=== PATIENT | female | born 1960 | race Caucasian/White ===

== ENCOUNTER 2020-05-08 14:08 | Inpatient (IN) | payer BC ==
[2020-05-08] MEDS ORDERED: ONDANSETRON 4 MG/2 ML VIAL ONE (14:38)
[2020-05-08] MEDS ORDERED: NA CHLORIDE 0.9% 1,000 ML ONE ×2 (14:38→17:24)
[2020-05-08] MEDS ORDERED: MORPHINE 4 MG/ML SYR ONE ×3 (14:38→18:21)
[2020-05-08 14:57] LABS: Absolute Lymphocytes (CBC) 1.6 K/uL (0.7-4.9); Basophils % 0.7 % (0-1.3); Hematocrit 37.8 % (36.0-45.0); Lymphocytes % 13.7 % (15.3-44.8); MPV 9.4 fL (7.6-11.3); RBC Red Blood Cell Count 4.41 M/uL (3.86-4.86)
[2020-05-08 15:15] LABS: ALT/SGPT 18 U/L (12-78); AST/SGOT 12 U/L (15-37); Albumin 3.9 g/dL (3.4-5.0); Alkaline Phosphatase 59 U/L (45-117); BUN Blood Urea Nitrogen 16 mg/dL (7-18); Bicarbonate 24 mmol/L (21-32); Bilirubin Direct 0.1 mg/dL (0-0.2); Bilirubin Total 0.7 mg/dL (0.2-1.0); Glucose Level 135 mg/dL (74-106); Lipase 146 U/L (73-393); Protein, Total 8.1 g/dL (6.4-8.2); Sodium Level 141 mmol/L (136-145)
[2020-05-08 15:19] LABS: Urine Bacteria NONE SEEN /HPF (<20); Urine Culture Reflex Order NOT NEEDED
[2020-05-08 15:22] LABS: Urine Blood TRACE (NEG); Urine Glucose NEGATIVE (NEG); Urine Protein 1+ (NEG)
--- NOTE | 2020-05-08 16:21 | RAD REPORT ---
EXAM DESCRIPTION: CTAbdomen Pelvis W Contrast - 05/08/2020 3:53 pm CLINICAL HISTORY: Abdominal pain. left lower abdomen pain COMPARISON: No comparisons TECHNIQUE: Biphasic CT imaging of the abdomen and pelvis was performed with 100 ml non-ionic IV cont rast. All CT scans are performed using dose optimization technique as appropriate and may include automated exposure control or mA/KV adjustment according to patient size. FINDINGS: The lung bases are clear. The liver, spleen, pancreas, adrenal glands and kidneys are within normal limits. No bowel obstruction, free air, free fluid or abscess. The appendix is not identified as a discrete structure, however, no secondary findings of appendicitis are identified. There is inflammatory wong ges involving the sigmoid colon in the left lower quadrant which are moderately severe likely represe nting acute diverticulitis. A small peridiverticular abscess is seen adjacent to this region measurin g 2 cm in abutting the uterus. This abscess would not be drainable by percutaneous technique. No evid ence of significant lymphadenopathy. No suspicious bony findings. IMPRESSION: Moderate acute sigmoid diverticulitis pattern is seen with small 2 cm peridiverticular a bscess noted deep to the colon and abutting the left aspect of the uterus.
[2020-05-08] MEDS ORDERED: KETOROLAC 30 MG/ML INJ ONE (16:34)
--- NOTE | 2020-05-08 16:59 | ER ---
Nurse's Notes [facility] Name: Rhonda Dowling Age: 59 yrs Sex: Female : 1960 Arrival Date: 05/08/2020 Time: 14:10 Bed 25 Private MD: Diagnosis: Diverticulitis of large intestine with perforation and abscess without bleeding-sigmoid colon Presentation: 05/08 14:13 Chief complaint: Patient states: abdominal pain more on the LL started 10 days ago. ca1 Went to PCP, prescribed abx for bowel infection, completed abx course yesterday. Pain came back today. Reports N/V last night. Denies fever. Coronavirus screen: Proceed with normal triage. Patient denies a cough. Patient denies shortness of breath or difficulty breathing. Patient denies measured and/or subjective temperature greater than 100.4F prior to today's visit. Patient denies travel on a cruise ship or to a country the [facility] currently lists as an affected area. Patient denies contact with known and/or suspected case of COVID-19. Ebola Screen: Patient negative for fever greater than or equal to 101.5 degrees Fahrenheit, and additional compatible Ebola Virus Disease symptoms Patient denies exposure to infectious person. Patient denies travel to an Ebola-affected area in the 21 days before illness onset. No symptoms or risks identified at this time. Initial Sepsis Screen: Does the patient meet any 2 criteria? No. Patient's initial sepsis screen is negative. Does the patient have a suspected source of infection? No. Patient's initial sepsis screen is negative. Risk Assessment: Do you want to hurt yourself or someone else? Patient reports no desire to harm self or others. Onset of symptoms was May 08, 2020. 14:13 Method Of Arrival: Ambulatory ca1 14:13 Acuity: JOSE R 3 ca1 Triage Assessment: 14:22 General: Appears uncomfortable, Behavior is calm, cooperative. Pain: Complains of pain ls4 in left lower quadrant Pain currently is 9 out of 10 on a pain scale. Quality of pain is described as sharp, stabbing, Pain began 2 weeks and then came back today. GI: Reports lower abdominal pain, Pain is 9 out of 10 on a pain scale. :. Derm: Skin is pink, warm \T\ dry. Historical: - Allergies: 14:17 Codeine; ca1 - Home Meds: 14:17 lisinopril 40 mg Oral tab 1 tab once daily [Active]; Bystolic 5 mg oral tab 1 tab once ca1 daily [Active]; metformin 500 mg Oral Tb24 1 tab once daily [Active]; - PMHx: 14:17 Hypertension; Diabetes - NIDDM; ca1 - PSHx: 14:17 None; ca1 - Immunization history:: Adult Immunizations up to date. - Social history:: Smoking status: Patient/guardian denies using tobacco. Screenin:24 Abuse screen: Denies threats or abuse. Denies injuries from another. Nutritional ls4 screening: No deficits noted. Tuberculosis screening: No symptoms or risk factors identified. Fall Risk None identified. Assessment: 15:20 Reassessment: Patient appears in no apparent distress at this time. Patient and/or ls4 family updated on plan of care and expected duration. Pain level reassessed. Patient is alert, oriented x 3, equal unlabored respirations, skin warm/dry/pink. PT REPORTS PAIN 8/10, VERBAL ORDER DAWN PINA TO REPEAT MORPHINE 4 MG IV. 15:47 GI: Abdomen is non-distended, Bowel sounds present X 4 quads. Abdomen is tender to ls4 palpation in left lower quadrant. 18:49 Reassessment: CALLED TO GIVE REPORT TO SECOND FLOOR. CANDICE STATES THEY ARE IN REPORT ls4 AND WILL CALL BACK. Vital Signs: 14:13 BP 181 / 84; Pulse 64; Resp 15 S; Temp 97.3(TE); Pulse Ox 99% on R/A; Weight 77.11 kg ca1 (R); Height 5 ft. 7 in. (170.18 cm) (R); Pain 9/10; 15:45 BP 180 / 69; Pulse 60; Resp 20; Pulse Ox 100% on R/A; Pain 7/10; ls4 18:35 BP 168 / 80; Pulse 67; Resp 16; Temp 97.9(O); Pulse Ox 100% on R/A; Pain 4/10; ls4 14:13 Body Mass Index 26.63 (77.11 kg, 170.18 cm) ca1 ED Course: 14:10 Patient arrived in ED. ag5 14:16 Triage completed. ca1 14:17 Arm band placed on right wrist. ca1 14:18 Dawn Pina PA is PHCP. cp 14:18 Christin Nelson MD is Attending Physician. cp 14:22 Jewell Brown, ANA PAULA is Primary Nurse. ls4 14:24 Patient has correct armband on for positive identification. Bed in low position. Call ls4 light in reach. Side rails up X 1. Pulse ox on. NIBP on. Warm blanket given. Pillow given. Diet: Patient is NPO. 14:24 No provider procedures requiring assistance completed. ls4 14:40 Inserted saline lock: 20 gauge in left forearm, using aseptic technique. dh4 15:45 CT Abd/Pelvis - IV Contrast Only Sent. ls4 15:53 CT Abd/Pelvis - IV Contrast Only In Process Unspecified. EDMS 16:58 Prince Reyes MD is Hospitalizing Provider. cp Administered Medications: 14:47 Drug: morphine 4 mg Route: IVP; Site: left forearm; ls4 15:17 Follow up: Response: No adverse reaction; Pain is decreased ls4 15:47 Follow up: Response: No adverse reaction; Marked relief of symptoms ls4 14:48 Drug: NS 0.9% 1000 ml Route: IV; Rate: 1000 ml/hr; Site: left forearm; ls4 15:48 Follow up: IV Status: Completed infusion; IV Intake: 1000ml ls4 14:55 Drug: Zofran (Ondansetron) 4 mg Route: IVP; Site: left forearm; ls4 15:25 Follow up: Response: No adverse reaction; Marked relief of symptoms ls4 15:22 Drug: morphine 4 mg Route: IVP; Site: left forearm; ls4 15:52 Follow up: Response: No adverse reaction; Pain is decreased ls4 16:31 Drug: TORadol 30 mg Route: IVP; Site: left forearm; ls4 16:45 Follow up: Response: No adverse reaction; Marked relief of symptoms; Pain is decreased ls4 17:34 Drug: Zosyn 3.375 grams Route: IVPB; Infused Over: 60 mins; Site: left forearm; ls4 18:34 Follow up: IV Status: Completed infusion; IV Intake: 100ml ls4 18:26 Drug: morphine 4 mg Route: IVP; Site: left forearm; ls4 18:46 Follow up: Response: No adverse reaction; Marked relief of symptoms; Pain is decreased ls4 Intake: 15:48 IV: 1000ml; Total: 1000ml. ls4 18:34 IV: 100ml; Total: 1100ml. ls4 Outcome: 16:59 Decision to Hospitalize by Provider. cp 20:59 Admitted to Med/surg accompanied by nurse, room 209, with chart, Report called to ls4 john crawley 20:59 Condition: unchanged ls4 20:59 Instructed on the need for admit. 21:47 Patient left the ED. ls4 Signatures: Dispatcher [employer] EDMS Dawn iPna PA PA cp Stewart, Lisa RN RN ls4 Cristal Herrera RN RN ca1 Chauncey Cartagena 5 Adam Thomson 4 Corrections: (The following items were deleted from the chart) 18:54 15:20 Reassessment: Patient appears in no apparent distress at this time. Patient ls4 and/or family updated on plan of care and expected duration. Pain level reassessed. Patient is alert, oriented x 3, equal unlabored respirations, skin warm/dry/pink. PT REPORTS PAIN 8/10, VERBAL ORDER DAWN PINA TO REPEAT MORPHINE 4 MG IV ls4 18:54 18:49 Reassessment: CALLED TO GIVE REPORT TO SECOND FLOOR. CANDICE STATES THEY ARE IN ls4 REPORT AND WILL CALL BACK ls4
--- NOTE | 2020-05-08 16:59 | EDPHYS ---
Physician Documentation [facility] Name: Rhonda Dowling Age: 59 yrs Sex: Female : 1960 Arrival Date: 05/08/2020 Time: 14:10 Bed 25 Private MD: ED Physician Christin Nelson HPI: 05/08 14:30 This 59 yrs old Female presents to ER via Ambulatory with complaints of cp Abdominal Pain. 14:30 The patient presents with abdominal pain in the left lower quadrant. Onset: The cp symptoms/episode began/occurred 12 day(s) ago. The symptoms radiate to left back. Associated signs and symptoms: Pertinent positives: nausea and vomiting, Pertinent negatives: constipation, diarrhea, dysuria, fever. The symptoms are described as constant. Patient reports taking last dose of antibiotic yesterday with pain returning and being worse today. Historical: - Allergies: 14:17 Codeine; ca1 - Home Meds: 14:17 lisinopril 40 mg Oral tab 1 tab once daily [Active]; Bystolic 5 mg oral tab 1 tab once ca1 daily [Active]; metformin 500 mg Oral Tb24 1 tab once daily [Active]; - PMHx: 14:17 Hypertension; Diabetes - NIDDM; ca1 - PSHx: 14:17 None; ca1 - Immunization history:: Adult Immunizations up to date. - Social history:: Smoking status: Patient/guardian denies using tobacco. ROS: 14:35 Constitutional: Negative for body aches, chills, fever, poor PO intake. cp 14:35 Eyes: Negative for injury, pain, redness, and discharge. cp 14:35 ENT: Negative for ear pain, sore throat, difficulty swallowing, difficulty handling cp secretions. 14:35 Cardiovascular: Negative for chest pain, edema, palpitations. 14:35 Respiratory: Negative for cough, shortness of breath, wheezing. 14:35 Abdomen/GI: Positive for abdominal pain, nausea and vomiting, Negative for diarrhea, constipation, black/tarry stool, rectal bleeding. 14:35 Back: Negative for radiated pain. 14:35 : Negative for urinary symptoms, vaginal bleeding, vaginal discharge. 14:35 Neuro: Negative for altered mental status, dizziness, weakness. 14:35 All other systems are negative. cp Exam: 14:40 Constitutional: The patient appears in no acute distress, alert, awake, non-toxic, well cp developed, well nourished, uncomfortable. 14:40 Head/Face: Normocephalic, atraumatic. cp 14:40 Eyes: Periorbital structures: appear normal, Conjunctiva: normal, no exudate, no injection, Sclera: no appreciated abnormality, Lids and lashes: appear normal, bilaterally. 14:40 ENT: External ear(s): are unremarkable, Nose: is normal, Mouth: is normal, Posterior pharynx: is normal, airway is patent. 14:40 Chest/axilla: Inspection: normal, Palpation: is normal, no crepitus, no tenderness. 14:40 Cardiovascular: Rate: normal, Rhythm: regular, Edema: is not appreciated, JVD: is not appreciated. 14:40 Respiratory: the patient does not display signs of respiratory distress, Respirations: normal, no use of accessory muscles, no retractions, labored breathing, is not present, Breath sounds: are clear throughout, no decreased breath sounds, no stridor, no wheezing. 14:40 Abdomen/GI: Inspection: abdomen appears normal, Bowel sounds: active, all quadrants, Palpation: soft, in all quadrants, moderate abdominal tenderness, in the left lower quadrant, rebound tenderness, is not appreciated, voluntary guarding, is elicited in the left lower quadrant. 14:40 Neuro: Orientation: to person, place \T\ time. Mentation: is normal, Motor: moves all fours, strength is normal. Vital Signs: 14:13 BP 181 / 84; Pulse 64; Resp 15 S; Temp 97.3(TE); Pulse Ox 99% on R/A; Weight 77.11 kg ca1 (R); Height 5 ft. 7 in. (170.18 cm) (R); Pain 9/10; 15:45 BP 180 / 69; Pulse 60; Resp 20; Pulse Ox 100% on R/A; Pain 7/10; ls4 18:35 BP 168 / 80; Pulse 67; Resp 16; Temp 97.9(O); Pulse Ox 100% on R/A; Pain 4/10; ls4 14:13 Body Mass Index 26.63 (77.11 kg, 170.18 cm) ca1 MDM: 14:24 Patient medically screened. cp 14:45 Differential diagnosis: diverticulitis, non-specific abd pain, Ureterolithiasis, cp urinary tract infection. 16:35 Data reviewed: vital signs, nurses notes, lab test result(s), radiologic studies, CT cp scan, and as a result, I will admit patient. 16:35 Counseling: I had a detailed discussion with the patient and/or guardian regarding: the cp historical points, exam findings, and any diagnostic results supporting the discharge/admit diagnosis, lab results, radiology results. Response to treatment: the patient's symptoms have markedly improved after treatment. 16:45 Physician consultation: Taj Landeros MD was called at 16:45, was contacted at 16:45, regarding consult, patient's condition, would like admission per Dr. Prince Amy CALDERON. 17:00 Physician consultation: Prince Amy CALDERON was called at 16:55, was contacted at 16:55, cp regarding admission, to the medical/surgical unit. patient's condition. 05/08 14:27 Order name: Basic Metabolic Panel; Complete Time: 15:38 cp 05/08 14:27 Order name: CBC with Diff; Complete Time: 15:38 cp 05/08 14:27 Order name: Hepatic Function; Complete Time: 15:38 cp 05/08 14:27 Order name: Lipase; Complete Time: 15:38 cp 05/08 14:27 Order name: Urine Microscopic Only; Complete Time: 15:38 cp 05/08 14:28 Order name: Urine Dipstick--Ancillary (enter results); Complete Time: 15:38 bd 05/08 14:27 Order name: CT Abd/Pelvis - IV Contrast Only; Complete Time: 16:33 cp 05/08 21:20 Order name: Lactate EDMS 05/08 14:27 Order name: IV Saline Lock; Complete Time: 14:56 cp 05/08 14:27 Order name: Labs collected and sent; Complete Time: 14:56 cp 05/08 14:27 Order name: Urine Dipstick-Ancillary (obtain specimen); Complete Time: 14:28 cp 05/08 16:35 Order name: NPO; Complete Time: 17:14 cp Administered Medications: 14:47 Drug: morphine 4 mg Route: IVP; Site: left forearm; ls4 15:17 Follow up: Response: No adverse reaction; Pain is decreased ls4 15:47 Follow up: Response: No adverse reaction; Marked relief of symptoms ls4 14:48 Drug: NS 0.9% 1000 ml Route: IV; Rate: 1000 ml/hr; Site: left forearm; ls4 15:48 Follow up: IV Status: Completed infusion; IV Intake: 1000ml ls4 14:55 Drug: Zofran (Ondansetron) 4 mg Route: IVP; Site: left forearm; ls4 15:25 Follow up: Response: No adverse reaction; Marked relief of symptoms ls4 15:22 Drug: morphine 4 mg Route: IVP; Site: left forearm; ls4 15:52 Follow up: Response: No adverse reaction; Pain is decreased ls4 16:31 Drug: TORadol 30 mg Route: IVP; Site: left forearm; ls4 16:45 Follow up: Response: No adverse reaction; Marked relief of symptoms; Pain is decreased ls4 17:34 Drug: Zosyn 3.375 grams Route: IVPB; Infused Over: 60 mins; Site: left forearm; ls4 18:34 Follow up: IV Status: Completed infusion; IV Intake: 100ml ls4 18:26 Drug: morphine 4 mg Route: IVP; Site: left forearm; ls4 18:46 Follow up: Response: No adverse reaction; Marked relief of symptoms; Pain is decreased ls4 Disposition: 05/08/20 16:59 Hospitalization ordered by Prince Amy for Inpatient Admission. Preliminary diagnosis is Diverticulitis of large intestine with perforation and abscess without bleeding - sigmoid colon. - Bed requested for Telemetry/MedSurg (Inpatient). - Status is Inpatient Admission. ls4 - Condition is Stable. - Problem is new. - Symptoms have improved. Addendum: 05/14/2020 02:26 Co-signature as Attending Physician, Christin Nelson MD. m a2 Signatures: Dispatcher [employer] Deedee Chin RN RN dw Page, Corey, PA PA cp Christin Nelson MD MD ma2 Jewell Brown RN RN ls4 Cristal Herrera RN RN ca1 Corrections: (The following items were deleted from the chart) 05/08 17:00 16:59 Hospitalization Ordered by Prince Amy CALDERON for Inpatient Admission. Preliminary cp diagnosis is Diverticulitis of large intestine with perforation and abscess without bleeding. Bed requested for Telemetry/MedSurg (Inpatient). Status is Inpatient Admission. Condition is Stable. Problem is new. Symptoms have improved. cp 18:07 17:00 05/08/2020 16:59 Hospitalization Ordered by Prince Amy CALDERON for Inpatient dw Admission. Preliminary diagnosis is Diverticulitis of large intestine with perforation and abscess without bleeding - sigmoid colon. Bed requested for Telemetry/MedSurg (Inpatient). Status is Inpatient Admission. Condition is Stable. Problem is new. Symptoms have improved. cp 21:46 18:07 05/08/2020 16:59 Hospitalization Ordered by Prince Amy CALDERON for Inpatient ls4 Admission. Preliminary diagnosis is Diverticulitis of large intestine with perforation and abscess without bleeding - sigmoid colon. Bed requested for Telemetry/MedSurg (Inpatient). Status is Inpatient Admission. Condition is Stable. Problem is new. Symptoms have improved. dw 21:47 21:46 05/08/2020 16:59 Hospitalization Ordered by Prince Amy CALDERON for Inpatient ls4 Admission. Preliminary diagnosis is Diverticulitis of large intestine with perforation and abscess without bleeding - sigmoid colon. Bed requested for Telemetry/MedSurg (Inpatient). Status is Inpatient Admission. Condition is Stable. Problem is new. Symptoms have improved. ls4
[2020-05-08] MEDS ORDERED: PIPER/TAZO/NS 3.375gm 3.375 GM/100 ML BAG ONE (17:24)
--- NOTE | 2020-05-08 18:38 | P.HP ---
Certification for Inpatient Patient admitted to: Inpatient With expected LOS: >2 Midnights Patient will require the following post-hospital care: None Practitioner: I am a practitioner with admitting privileges, knowledge of patient current condition, hospital course, and medical plan of care. Services: Services provided to patient in accordance with Admission requirements found in Title 42 Section 412.3 of the Code of Federal Regulations Patient History Date of Service: 05/08/20 Reason for admission: Abdomen History of Present Illness: Patient is a 59-year-old female with a past medical history of obesity, hypertension, [id number] diabetes mellitus, and diverticulitis. She present to the ER complaining of acutely worsening left lower quadrant abdominal pain for the past 2 weeks. Patient was seen by her PCP for this issue and was prescribed antibiotics. She suspects it is Keflex. She endorses improvement for the next 10 days before relapsing again. She called her PCP who was willing to prescribe another antibiotics but patient could not stay home. Therefore she presented the ER. Denies fever, chills. She denies any gastrointestinal bleeding. As stated above, she has had diverticulitis several years ago. Her post hospitalization colonoscopy was unremarkable. She has had at least 2 more colonoscopy with the last 1 being 5 years ago. Her last colonoscopy revealed a benign polyp. She arrived in the ER without signs of sepsis. His CT abdomen and pelvis showed diverticular abscess approximately 2 cm abutting the left uterus. Surgery has been consulted by the ER. Physical Examination - Physical Exam General: Cooperative, Other (Lethargic) HEENT: Atraumatic, Normocephalic, PERRLA, EOMI Neck: Supple Respiratory: Clear to auscultation bilaterally, Normal air movement Cardiovascular: Normal pulses, Regular rate/rhythm, Normal S1 S2 Gastrointestinal: Hypoactive, Soft and benign, Non-distended, Other (Mild left lower quadrant tenderness) Musculoskeletal: No clubbing, No swelling, No contractures, No erythema, No tenderness, No warmth Integumentary: No rashes, No breakdown, No significant lesion, No tenderness/swelling, No erythema, No warmth, No cyanosis Neurological: Normal speech, Sensation intact, Normal affect - Studies Laboratory Data (last 24 hrs) 05/08/20 14:41: WBC 11.3 H, Hgb 12.3, Hct 37.8, Plt Count 275 05/08/20 14:41: Sodium 141, Potassium 4.0, BUN 16, Creatinine 0.65, Glucose 135 H, Total Bilirubin 0.7, AST 12 L, ALT 18, Alkaline Phosphatase 59, Lipase 146 Assessment and Plan - Problems (Diagnosis) (1) Colonic diverticular abscess Current Visit: Yes Status: Acute (2) Type 2 diabetes mellitus Current Visit: Yes Status: Acute (3) Hypertension Current Visit: Yes Status: Acute (4) Hyperlipidemia Current Visit: Yes Status: Acute - Plan Assessment Patient is a 59 year old female currently admitted with acute on chronic diverticulitis with abscess Diverticular abscess Hyperlipidemia Hypertension Type 2 diabetes mellitus Plan Admit inpatient NPO except for ice chips Start levofloxacin and Flagyl Lactated Ringer infusion Pain control and antiemetics Surgery consulted. Follow-up recommendations - Advance Directives Does patient have a Living Will: No Does patient have a Durable POA for Healthcare: No
[2020-05-08 20:39] VITALS: BMI 26.6
[2020-05-08] MEDS: Levofloxacin 750mg IV 750 MG/150 ML BAG IV SCH (20:47)
[2020-05-08] MEDS: Ringers Lactate 1,000 ML IV SCH (20:47)
[2020-05-08] MEDS: HYDROMORPHONE HCL 1 MG/ML INJ IV PRN (20:50)
[2020-05-08] MEDS: METRONIDAZOLE 500mg IVPB 500 MG/100 ML BAG IV SCH (22:17)
[2020-05-08] MEDS: ONDANSETRON 4 MG/2 ML VIAL IV PRN (22:20)
[2020-05-09] MEDS: METRONIDAZOLE 500mg IVPB 500 MG/100 ML BAG IV SCH ×3 (00:57→16:35)
[2020-05-09] MEDS: HYDROMORPHONE HCL 1 MG/ML INJ IV PRN ×5 (00:57→20:57)
[2020-05-09] MEDS: Ringers Lactate 1,000 ML IV SCH ×2 (05:50→16:30)
--- NOTE | 2020-05-09 07:36 | P.PN ---
Subjective Date of Service: 05/09/20 Chief Complaint: Abdomen Patient is complaining of nausea and dry heaving. She has been afebrile. She states her abdominal pain is better this morning after pain medication. Physical Examination - Vital Signs Temperature: 98.5 F Blood Pressure: 167/77 Pulse: 69 Respirations: 16 Pulse Ox (%): 95 - Physical Exam General: Alert, In no apparent distress, Oriented x3 HEENT: Mucous membr. moist/pink Respiratory: Clear to auscultation bilaterally, Normal air movement Cardiovascular: No edema, Regular rate/rhythm, Normal S1 S2 Gastrointestinal: Normal bowel sounds, Non-distended, Tenderness (Tenderness on deep palpation of left lower quadrant) Integumentary: No rashes - Studies Laboratory Data (last 24 hrs) 05/08/20 14:41: WBC 11.3 H, Hgb 12.3, Hct 37.8, Plt Count 275 05/08/20 14:41: Sodium 141, Potassium 4.0, BUN 16, Creatinine 0.65, Glucose 135 H, Total Bilirubin 0.7, AST 12 L, ALT 18, Alkaline Phosphatase 59, Lipase 146 Assessment And Plan - Current Problems (Diagnosis) (1) Colonic diverticular abscess Current Visit: Yes Status: Acute (2) Hyperlipidemia Current Visit: Yes Status: Acute (3) Hypertension Current Visit: Yes Status: Acute (4) Type 2 diabetes mellitus Current Visit: Yes Status: Acute - Plan Continue current IV antibiotics. Supportive measures with IV hydration, antiemetics and IV opiates p.r.n. for pain. Resume home antihypertensives. Insulin sliding scale. Keep NPO until seen by surgery.
[2020-05-09] MEDS: lisinopriL 20 MG TAB PO SCH (08:40)
[2020-05-09] MEDS: NEBIVOLOL HCL 5 MG TAB PO SCH (08:40)
--- NOTE | 2020-05-09 11:22 | CON ---
Date of Consultation: 05/09/2020 Diagnosis: Intraabdominal abscess, possible diverticulitis. History Of Present Illness: This is the case of a 59-year-old female with multiple medical problems including diverticular disease and diabetes, who comes after a week of abdominal pain. She was on an tibiotics, she believed it was a cephalosporin given by the primary doctor, but she had not improved and she comes to the ER this time and she was admitted and found to have a diverticulitis on CAT scan with pericolonic abscess. The patient stated that the last 2 weeks she has not been herself, she gomes s some belly ache. She remembered in the past having a history of diverticular disease, but not into this level that require admission. She states she had colonoscopies done before with benign polyps, I do not have those at this moment. Review of Systems: Ten points otherwise unremarkable. Past Medical History: Once again, morbid obesity, hypertension, diabetes non-insulin dependent, and diverticulitis. Family History: Noncontributory. Allergies: CODEINE. Social History: She does not smoke. She does not drink alcohol. Physical Examination: General: Patient is awake, alert, cooperative. Eyes: Pupils are equal and reactive, anicteric. Neck: Supple. Chest: Clear. Abdomen: Soft and depressible. Mild left lower quadrant tenderness. No guarding or rebound. No pe ritoneal signs. Rectal: Deferred. Breast: Deferred. Pelvic: Deferred. Extremities: Good capillary refill. Laboratory Data: Blood work shows WBC count of 11.3, hemoglobin of 12.3, and chloride is 110. CAT s can of abdomen and pelvis interpreted by Dr. Mckeon as moderate acute sigmoid diverticulitis with small 2 cm shantel-diverticular abscess. No free air seen. Assessment And Plan: This is a 59-year-old patient with diverticulitis, small intraperitoneal absces s. The patient was started n.p.o., IV antibiotics, bowel rest. She was explained what may happen du ring this admission if she get worse, which is emergent laparotomy, possible bowel resection, and ost key with benefits, alternatives, and risks including, but not limited to infection, bleeding, damage to adjacent structures, anesthesia complication, nonhealing wound, myocardial infarction, and even de ath. She also understands this may not relieve any symptoms, she might need more than one surgical i ntervention. If she responds to antibiotics, then we do not have to go for this emergent procedure, she still may be a candidate of elective bowel resection. She was explained the benefits, alternativ es, and risks. She is going to come back to the office if she improved without surgery at this time. REUBEN/BLUE Voice ID: [id number] Report ID: [id number]
[2020-05-09] MEDS: ONDANSETRON 4 MG/2 ML VIAL IV PRN (16:35)
[2020-05-09] MEDS: Levofloxacin 750mg IV 750 MG/150 ML BAG IV SCH (20:31)
[2020-05-10] MEDS: METRONIDAZOLE 500mg IVPB 500 MG/100 ML BAG IV SCH ×3 (00:06→16:07)
[2020-05-10] MEDS: Ringers Lactate 1,000 ML IV SCH ×4 (00:50→20:14)
[2020-05-10] MEDS: HYDROMORPHONE HCL 1 MG/ML INJ IV PRN ×4 (00:50→20:14)
[2020-05-10] MEDS: ONDANSETRON 4 MG/2 ML VIAL IV PRN ×2 (00:51→13:19)
[2020-05-10 04:24] LABS: Absolute Lymphocytes (CBC) 1.6 K/uL (0.7-4.9); Basophils % 0.7 % (0-1.3); Hematocrit 33.1 % (36.0-45.0); Lymphocytes % 16.2 % (15.3-44.8); MPV 9.7 fL (7.6-11.3)
[2020-05-10 04:33] LABS: BUN Blood Urea Nitrogen 10 mg/dL (7-18); Bicarbonate 27 mmol/L (21-32); Glucose Level 117 mg/dL (74-106); Potassium 3.5 mmol/L (3.5-5.1); Sodium Level 139 mmol/L (136-145)
[2020-05-10] MEDS: NEBIVOLOL HCL 5 MG TAB PO SCH (08:39)
[2020-05-10] MEDS: lisinopriL 20 MG TAB PO SCH (08:40)
[2020-05-10] MEDS: TRAMADOL HCL 50 MG TAB PO SCH ×3 (09:18→23:24)
--- NOTE | 2020-05-10 09:53 | RAD REPORT ---
EXAM DESCRIPTION: RAD - Abdomen W Erect - 05/10/2020 9:40 am CLINICAL HISTORY: diverticulitis Pain COMPARISON: Abdomen Pelvis W Contrast dated 05/08/2020 FINDINGS: The bowel gas pattern is non-obstructive. No evidence of free air or pneumatosis. No suspi cious calcifications. No significant bony findings. IMPRESSION: Negative examination.
[2020-05-10] MEDS ORDERED: LABETALOL 20 MG/4ML SYRINGE IV PRN (11:04)
--- NOTE | 2020-05-10 11:09 | P.PN ---
Subjective Date of Service: 05/10/20 Chief Complaint: Abdomen Subjective: Improving (FEELS AT LEAST 50% IMPROVED. SHE STILL COMPLAINS OF PAIN DURING BOWEL MOVEMENTS. TRAMADOL ADDED TO ALL HER MULTIMODAL PAIN REGIMEN. SHE WAS DISTRESSED WHEN WHEN I DISCUSSED THE POSSIBILITY OF SURGICAL INTERVENTION, WHICH IS CONTEMPLATED AT THIS TIME. I DEFER FURTHER EXPLANATION TO SURGERY.) Physical Examination - Vital Signs Temperature: 98.7 F Blood Pressure: 191/84 Pulse: 72 Respirations: 16 Pulse Ox (%): 97 - Physical Exam General: In no apparent distress, Cooperative, Mild distress HEENT: Atraumatic, Normocephalic, EOMI Neck: Supple Respiratory: Clear to auscultation bilaterally, Normal air movement Cardiovascular: No edema, Normal pulses, Regular rate/rhythm, Normal S1 S2 Gastrointestinal: Normal bowel sounds, Hypoactive, No guarding, Other (LLQ tenderness. ), Tenderness Musculoskeletal: No clubbing, No swelling, No contractures, No erythema, No tenderness, No warmth Integumentary: No rashes, No breakdown, No significant lesion, No tenderness/swelling, No erythema, No warmth, No cyanosis Neurological: Normal speech, Sensation intact, Normal affect Assessment & Plan - Problems (Diagnosis) (1) Colonic diverticular abscess Current Visit: Yes Status: Acute (2) Type 2 diabetes mellitus Current Visit: Yes Status: Acute (3) Hypertension Current Visit: Yes Status: Acute (4) Hyperlipidemia Current Visit: Yes Status: Acute Physician Review Additional Text: Assessment Patient is a 59 year old female currently admitted with acute on c hronic diverticulitis with abscess Diverticular abscess Hyperlipidemia Hypertension Type 2 diabetes mellitus Plan Day 3 of levofloxacin, flagyl and IVF Kept NPO by Surgery Dr. Landeros to re-assess the patient and discuss surgical options today Optimize multi-modal pain regimen: tramadol added Continue antiemetics Optimize BP control. PRN labetalol added. Continue TABBY-i and bystolic (patient states she's been dx with adrenal hyperstimulation; CT A/P with normal adrenal glands) Follow-up recommendations
--- NOTE | 2020-05-10 11:44 | PN ---
Reason For Service: Diverticula with intraperitoneal abscess. History: The patient is doing better, less pain in the left lower quadrant. No fever. No shortness of breath. No chest pain. Review of Systems: Ten points, otherwise, unremarkable. Physical Examination: General: The patient is awake and alert, in no distress. Eyes: Pupils anicteric. Chest: Clear. Abdomen: Soft and depressible. Left lower quadrant tenderness with less pain. Extremities: Good capillary refill. The patient starting to have movement. Laboratory Data: Blood work shows WBC count from 11 to 9. X-ray shows no free air. Assessment And Plan: This is a 59-year-old patient with diverticulitis and abscess. She has been tr eated for the last 10-12 days with p.o. antibiotics, failed outpatient treatment, came to the ER, rajinder gnosed with abscess and we started on IV antibiotics. We called Infectious Disease also to help us d etermine the length of the antibiotics treatment and the route. From the surgical standpoint, she un derstand the surgical options in case she clinically deteriorates. She understand also the options o f elective colon resection, even if she do okay with this admission. We will follow the patient with you. REUBEN/BLUE Voice ID: [id number] Report ID: [id number]
--- NOTE | 2020-05-10 17:52 | P.CNS ---
Date of Consult: 05/10/20 Subjective: The patient is a 59-year-old female who presented to the ER with complaints of worsening left lower quadrant pain. Patient was seen by her PCP for abdominal pain and was prescribed antibiotics the, unsure of which antibiotic it was but she completed 10 days. Patient reports pain improved while on antibiotics but came back soon after she finished. Patient found to have leukocytosis, diverticulitis and diverticular abscess which have been consulted for. Past medical/surgical history: Hypertension, diabetes mellitus Social history: Denies tobacco and alcohol use Family history: noncontributory Allergies: Codeine Active Medications Hydromorphone HCl (Dilaudid) 1 mg IV Q4H PRN PRN Reason: Pain scale 8-10 (Severe) Stop: 06/07/20 20:40 Last Admin: 05/10/20 13:20 Dose: 1 mg Documented by: Lactated Ringer's (Lactated Ringers) 1,000 mls @ 125 mls/hr IV .Q8H ISATU Stop: 06/07/20 20:40 Last Admin: 05/10/20 11:55 Dose: 1,000 mls Documented by: Levofloxacin/Dextrose (Levaquin 750 Mg/150 Ml Ivpb (Premix)) 750 mg in 150 mls @ 100 mls/hr IV Q24H ISATU; Protocol Stop: 06/07/20 20:40 Last Admin: 05/09/20 20:31 Dose: 150 mls Documented by: Metronidazole/Sodium Chloride (Flagyl 500mg/100 Ml Iv Premix) 500 mg in 100 mls @ 200 mls/hr IV Q8HR ISATU; Protocol Stop: 06/07/20 21:01 Last Admin: 05/10/20 16:07 Dose: 100 mls Documented by: Labetalol HCl (Trandate) 20 mg IV Q4HP PRN PRN Reason: HTN Stop: 06/09/20 11:05 Lisinopril (Prinivil) 40 mg PO DAILY ISATU Stop: 06/08/20 09:01 Last Admin: 05/10/20 08:40 Dose: 40 mg Documented by: Nebivolol (Bystolic) 5 mg PO DAILY ISATU Stop: 06/08/20 09:01 Last Admin: 05/10/20 08:39 Dose: 5 mg Documented by: Ondansetron HCl (Zofran) 4 mg IV Q8H PRN PRN Reason: NAUSEA / VOMITING Stop: 06/07/20 20:40 Last Admin: 05/10/20 13:19 Dose: 4 mg Documented by: Tramadol HCl (Ultram) 50 mg PO Q6H ISATU Stop: 06/09/20 09:01 Last Admin: 05/10/20 16:07 Dose: 50 mg Documented by: ROS: CV: Denies chest pain RESP: denies shortness of breath, cough : Denies dysuria GI: Reports left lower quadrant pain improving Objective: Temp Pulse Resp BP Pulse Ox 98.2 F 58 16 173/81 H 98 05/10/20 16:00 05/10/20 16:00 05/10/20 17:07 05/10/20 16:00 05/10/20 17:07 Labs: Sodium 139, potassium 3.5, BUN 10, creatinine 0.54, WBC 9.7, hemoglobin 11.3, hematocrit 32.1 Abd/Pelvis CT 05/08: EXAM DESCRIPTION: CTAbdomen Pelvis W Contrast - 05/08/2020 3:53 pm CLINICAL HISTORY: Abdominal pain. left lower abdomen pain COMPARISON: No comparisons TECHNIQUE: Biphasic CT imaging of the abdomen and pelvis was performed with 100 ml non-ionic IV contrast. All CT scans are performed using dose optimization technique as appropriate and may include automated exposure control or mA/KV adjustment according to patient size. FINDINGS: The lung bases are clear. The liver, spleen, pancreas, adrenal glands and kidneys are within normal limits. No bowel obstruction, free air, free fluid or abscess. The appendix is not identified as a discrete structure, however, no secondary findings of appendicitis are identified. There is inflammatory changes involving the sigmoid colon in the left lower quadrant which are moderately severe likely representing acute diverticulitis. A small peridiverticular abscess is seen adjacent to this region measuring 2 cm in abutting the uterus. This abscess would not be drainable by percutaneous technique. No evidence of significant lymphadenopathy. No suspicious bony findings. IMPRESSION: Moderate acute sigmoid diverticulitis pattern is seen with small 2 cm peridiverticular abscess noted deep to the colon and abutting the left aspect of the uterus. Abd xray 05/10: CLINICAL HISTORY: diverticulitis Pain COMPARISON: Abdomen Pelvis W Contrast dated 05/08/2020 FINDINGS: The bowel gas pattern is non-obstructive. No evidence of free air or pneumatosis. No suspicious calcifications. No significant bony findings. IMPRESSION: Negative examination. ROS: General: Awake, alert, no acute distress CV: S1, S2 RESP: Good breath sounds, room air ABD: Tenderness to left lower quadrant, bowel sounds present Extremities: no edema Assessment and plan: Diverticulitis Leukocytosis resolved, Afebrile Diabetes mellitus, monitor glycemic control Currently on Levaquin day 3 and Flagyl day 3, recommend to continue for total of two weeks Can change to PO upon discharge Will continue to monitor Thank you for consult Patient discussed with Dr. Valdes
[2020-05-10] MEDS: Levofloxacin 750mg IV 750 MG/150 ML BAG IV SCH (20:07)
[2020-05-11] MEDS: METRONIDAZOLE 500mg IVPB 500 MG/100 ML BAG IV SCH ×3 (01:00→16:15)
[2020-05-11] MEDS: TRAMADOL HCL 50 MG TAB PO SCH ×4 (03:00→20:54)
[2020-05-11] MEDS: Ringers Lactate 1,000 ML IV SCH ×2 (04:39→15:38)
[2020-05-11] MEDS: ONDANSETRON 4 MG/2 ML VIAL IV PRN ×2 (06:30→20:53)
[2020-05-11] MEDS: HYDROMORPHONE HCL 1 MG/ML INJ IV PRN ×3 (06:30→20:53)
[2020-05-11] MEDS: lisinopriL 20 MG TAB PO SCH (09:12)
[2020-05-11] MEDS: NEBIVOLOL HCL 5 MG TAB PO SCH (09:12)
[2020-05-11] MEDS ORDERED: POLYETHYL GLY 3350 17 GM/DOSE PO PRN (09:58)
--- NOTE | 2020-05-11 10:22 | P.PN ---
Subjective Date of Service: 05/11/20 Chief Complaint: Abdomen Subjective: Improving (Patient is feeling improved except she is still experiencing pain during bowel movement. Diet challenge today.) Physical Examination - Vital Signs Temperature: 98.3 F Blood Pressure: 165/72 Pulse: 69 Respirations: 15 Pulse Ox (%): 99 - Physical Exam General: In no apparent distress, Cooperative HEENT: Atraumatic, Normocephalic Neck: Supple Respiratory: Clear to auscultation bilaterally, Normal air movement Cardiovascular: Normal pulses, Regular rate/rhythm, Normal S1 S2 Gastrointestinal: Soft and benign, Non-distended, Other (suprapubic and LLQ tenderness), Tenderness Neurological: Normal speech, Sensation intact, Normal affect Assessment & Plan - Problems (Diagnosis) (1) Colonic diverticular abscess Current Visit: Yes Status: Acute (2) Type 2 diabetes mellitus Current Visit: Yes Status: Acute (3) Hypertension Current Visit: Yes Status: Acute (4) Hyperlipidemia Current Visit: Yes Status: Acute Physician Review Additional Text: Assessment Patient is a 59 year old female currently admitted with acute on chronic diverticulitis with abscess Diverticular abscess Hyperlipidemia Hypertension Type 2 diabetes mellitus Plan Day 4 of levofloxacin, flagyl and IVF Surgery to reassess clinical status after diet challenge ID recommends 2 weeks of antibiotics Optimize multi-modal pain regimen Continue antiemetics Optimize BP control. PRN labetalol added. Continue TABBY-i and bystolic (patient states she's been dx with adrenal hyperstimulation; CT A/P with normal adrenal glands) Follow-up recommendations
[2020-05-11] MEDS: DOCUSATE NA 100 MG CAP PO SCH ×2 (12:13→20:54)
--- NOTE | 2020-05-11 15:53 | P.PN ---
Date of Service: 05/11/20 Subjective: The patient is a 59-year-old female who presented to the ER with complaints of worsening left lower quadrant pain. Patient was seen by her PCP for abdominal pain and was prescribed antibiotics the, unsure of which antibiotic it was but she completed 10 days. Patient reports pain improved while on antibiotics but came back soon after she finished. Patient found to have leukocytosis, diverticulitis and diverticular abscess which have been consulted for. Patient examined at bedside. reports some cramping after given a laxitive. Denies nausea and fever. Still with LLQ pain. Objective: Temp Pulse Resp BP Pulse Ox 97.5 F 56 16 169/74 H 98 05/11/20 12:00 05/11/20 12:00 05/11/20 15:38 05/11/20 12:00 05/11/20 15:38 Labs: No new labs Available Abd/Pelvis CT 05/08: EXAM DESCRIPTION: CTAbdomen Pelvis W Contrast - 05/08/2020 3:53 pm CLINICAL HISTORY: Abdominal pain. left lower abdomen pain COMPARISON: No comparisons TECHNIQUE: Biphasic CT imaging of the abdomen and pelvis was performed with 100 ml non-ionic IV contrast. All CT scans are performed using dose optimization technique as appropriate and may include automated exposure control or mA/KV adjustment according to patient size. FINDINGS: The lung bases are clear. The liver, spleen, pancreas, adrenal glands and kidneys are within normal limits. No bowel obstruction, free air, free fluid or abscess. The appendix is not identified as a discrete structure, however, no secondary findings of appendicitis are identified. There is inflammatory changes involving the sigmoid colon in the left lower quadrant which are moderately severe likely representing acute diverticulitis. A small peridiverticular abscess is seen adjacent to this region measuring 2 cm in abutting the uterus. This abscess would not be drainable by percutaneous technique. No evidence of significant lymphadenopathy. No suspicious bony findings. IMPRESSION: Moderate acute sigmoid diverticulitis pattern is seen with small 2 cm peridiverticular abscess noted deep to the colon and abutting the left aspect of the uterus. Abd xray 05/10: CLINICAL HISTORY: diverticulitis Pain COMPARISON: Abdomen Pelvis W Contrast dated 05/08/2020 FINDINGS: The bowel gas pattern is non-obstructive. No evidence of free air or pneumatosis. No suspicious calcifications. No significant bony findings. IMPRESSION: Negative examination. ROS: General: Awake, alert, Ambulating around the room CV: S1, S2 RESP: Good breath sounds, room air ABD: Tenderness to left lower quadrant, bowel sounds present Extremities: no edema Assessment and plan: Diverticulitis Leukocytosis resolved, Afebrile Diabetes mellitus, monitor glycemic control Currently on Levaquin day 4 and Flagyl day 4, recommend to continue for total of two weeks Can change to PO upon discharge Will continue to monitor Patient discussed with Dr. Valdes
[2020-05-11] MEDS: Levofloxacin 750mg IV 750 MG/150 ML BAG IV SCH (20:54)
[2020-05-12] MEDS: HYDROMORPHONE HCL 1 MG/ML INJ IV PRN ×4 (01:19→19:42)
[2020-05-12] MEDS: METRONIDAZOLE 500mg IVPB 500 MG/100 ML BAG IV SCH ×3 (01:23→15:41)
[2020-05-12] MEDS: Ringers Lactate 1,000 ML IV SCH ×4 (01:26→20:39)
[2020-05-12] MEDS: TRAMADOL HCL 50 MG TAB PO SCH ×5 (02:48→23:52)
[2020-05-12] MEDS: NEBIVOLOL HCL 5 MG TAB PO SCH (09:21)
[2020-05-12] MEDS: DOCUSATE NA 100 MG CAP PO SCH ×3 (09:21→21:05)
[2020-05-12] MEDS: lisinopriL 20 MG TAB PO SCH (09:22)
--- NOTE | 2020-05-12 12:28 | P.PN ---
Date of Service: 05/12/20 Subjective: The patient is a 59-year-old female who presented to the ER with complaints of worsening left lower quadrant pain. Patient was seen by her PCP for abdominal pain and was prescribed antibiotics the, unsure of which antibiotic it was but she completed 10 days. Patient reports pain improved while on antibiotics but came back soon after she finished. Patient found to have leukocytosis, diverticulitis and diverticular abscess which have been consulted for. Patient examined at bedside. Still with LLQ pain. Patient is gluten free and ate cream of wheat this morning, now c/o lots of gas and abdominal cramping Objective: Temp Pulse Resp BP Pulse Ox 97.5 F 63 16 117/75 97 05/12/20 11:56 05/12/20 11:56 05/12/20 11:56 05/12/20 11:56 05/12/20 11:56 Labs: No new labs Available Abd/Pelvis CT 05/08: EXAM DESCRIPTION: CTAbdomen Pelvis W Contrast - 05/08/2020 3:53 pm CLINICAL HISTORY: Abdominal pain. left lower abdomen pain COMPARISON: No comparisons TECHNIQUE: Biphasic CT imaging of the abdomen and pelvis was performed with 100 ml non-ionic IV contrast. All CT scans are performed using dose optimization technique as appropriate and may include automated exposure control or mA/KV adjustment according to patient size. FINDINGS: The lung bases are clear. The liver, spleen, pancreas, adrenal glands and kidneys are within normal limits. No bowel obstruction, free air, free fluid or abscess. The appendix is not identified as a discrete structure, however, no secondary findings of appendicitis are identified. There is inflammatory changes involving the sigmoid colon in the left lower quadrant which are moderately severe likely representing acute diverticulitis. A small peridiverticular abscess is seen adjacent to this region measuring 2 cm in abutting the uterus. This abscess would not be drainable by percutaneous technique. No evidence of significant lymphadenopathy. No suspicious bony findings. IMPRESSION: Moderate acute sigmoid diverticulitis pattern is seen with small 2 cm peridiverticular abscess noted deep to the colon and abutting the left aspect of the uterus. Abd xray 05/10: CLINICAL HISTORY: diverticulitis Pain COMPARISON: Abdomen Pelvis W Contrast dated 05/08/2020 FINDINGS: The bowel gas pattern is non-obstructive. No evidence of free air or pneumatosis. No suspicious calcifications. No significant bony findings. IMPRESSION: Negative examination. ROS: General: Awake, alert, Ambulating around the room CV: S1, S2 RESP: Good breath sounds, room air ABD: Tenderness to left lower quadrant, bowel sounds present Extremities: no edema Assessment and plan: Diverticulitis Leukocytosis resolved, Afebrile Diabetes mellitus, monitor glycemic control Currently on Levaquin day 5 and Flagyl day 5, recommend to continue for total of two weeks Can change to PO upon discharge Will continue to monitor Patient discussed with Dr. Valdes
[2020-05-12] MEDS: SIMETHICONE 80 MG TAB PO PRN ×3 (15:41→23:52)
--- NOTE | 2020-05-12 16:10 | P.PN ---
Subjective Date of Service: 05/12/20 Chief Complaint: Abdomen Subjective: Other (patient is having frequent loose BM after she was placed on colace + miralax. She has been able to tolerate diet challenge) Physical Examination - Vital Signs Temperature: 97.5 F Blood Pressure: 117/75 Pulse: 63 Respirations: 16 Pulse Ox (%): 97 - Physical Exam General: In no apparent distress, Cooperative, Other (lethargic) HEENT: Atraumatic, Normocephalic, EOMI Neck: Supple Respiratory: Clear to auscultation bilaterally, Normal air movement Cardiovascular: No edema, Normal pulses, Regular rate/rhythm, Normal S1 S2 Gastrointestinal: Normal bowel sounds, Soft and benign, Non-distended, No tenderness Musculoskeletal: No clubbing, No swelling, No contractures, No erythema, No tenderness, No warmth Integumentary: No rashes, No breakdown, No significant lesion, No tenderness/swelling, No erythema, No warmth, No cyanosis Neurological: Normal speech, Sensation intact, Normal affect Assessment & Plan - Problems (Diagnosis) (1) Colonic diverticular abscess Current Visit: Yes Status: Acute (2) Type 2 diabetes mellitus Current Visit: Yes Status: Acute (3) Hypertension Current Visit: Yes Status: Acute (4) Hyperlipidemia Current Visit: Yes Status: Acute Physician Review Additional Text: Assessment Patient is a 59 year old female currently admitted with acute on chronic diverticulitis with abscess. She has been introduced to diet for the past 24 hours. Tolerating diet but this morning she is concerned about the frequency of her BM. She is also complaining of gas pain. Diverticular abscess Hyperlipidemia Hypertension Type 2 diabetes mellitus Plan Start simethicone Continue colace, change miralax to senna Day 5 of levofloxacin, flagyl and IVF Surgery to reassess clinical status after diet challenge ID recommends 2 weeks of antibiotics Optimize multi-modal pain regimen Continue antiemetics Optimize BP control. PRN labetalol added. Continue TABBY-i and bystolic (patient states she's been dx with adrenal hyperstimulation; CT A/P with normal adrenal glands) Follow-up recommendations
[2020-05-12] MEDS ORDERED: SENOSIDES 8.6 MG TAB PO PRN (16:11)
--- NOTE | 2020-05-12 19:25 | PN ---
Date of Progress Note: 05/11/2020 Diagnoses: Diverticular abscess, diverticulitis. Subjective: Patient is doing better and got a little bit gas last night after eating some oatmeal an d she has some noise under belly, but is not the same pain that she had before in the left lower quad rant. From that she feels better. We are going to advance the diet slowly from the surgical standpo int. When she gets discharged, we will encourage her to visit our office in a week from now, since luigi paz may have to talk once again about elective surgical resection. We encouraged ambulation, no seeds on diet. HM/MODL Voice ID: [id number] Report ID: [id number]
[2020-05-12] MEDS: Levofloxacin 750mg IV 750 MG/150 ML BAG IV SCH (20:31)
[2020-05-13] MEDS: METRONIDAZOLE 500mg IVPB 500 MG/100 ML BAG IV SCH ×3 (00:04→16:55)
[2020-05-13] MEDS: TRAMADOL HCL 50 MG TAB PO SCH ×4 (02:58→21:14)
[2020-05-13] MEDS: Ringers Lactate 1,000 ML IV SCH ×3 (04:35→19:52)
[2020-05-13] MEDS: ONDANSETRON 4 MG/2 ML VIAL IV PRN (08:47)
[2020-05-13] MEDS: lisinopriL 20 MG TAB PO SCH (08:47)
[2020-05-13] MEDS: DOCUSATE NA 100 MG CAP PO SCH ×2 (08:48→21:14)
[2020-05-13] MEDS: SIMETHICONE 80 MG TAB PO PRN (08:48)
[2020-05-13] MEDS: NEBIVOLOL HCL 5 MG TAB PO SCH (08:48)
[2020-05-13 08:58] LABS: Absolute Lymphocytes (CBC) 1.4 K/uL (0.7-4.9); Basophils % 0.4 % (0-1.3); Hematocrit 36.2 % (36.0-45.0); Lymphocytes % 17.5 % (15.3-44.8); MPV 8.6 fL (7.6-11.3); RBC Red Blood Cell Count 4.32 M/uL (3.86-4.86)
[2020-05-13 09:10] LABS: BUN Blood Urea Nitrogen 8 mg/dL (7-18); Bicarbonate 31 mmol/L (21-32); Glucose Level 126 mg/dL (74-106); Potassium 3.6 mmol/L (3.5-5.1); Sodium Level 140 mmol/L (136-145)
[2020-05-13] MEDS: HYDROMORPHONE HCL 1 MG/ML INJ IV PRN ×2 (09:50→12:42)
[2020-05-13] MEDS ORDERED: AMLODIPINE 5 MG TAB PO ONE (10:31)
--- NOTE | 2020-05-13 10:39 | P.PN ---
Subjective Date of Service: 05/13/20 Chief Complaint: Abdomen Subjective: No new changes, Other (Patient is getting partial relief of abdominal pain. I introduced simethicone yesterday as she complained of gas pain. Will try GI cocktail today.) Physical Examination - Vital Signs Temperature: 97.5 F Blood Pressure: 180/90 Pulse: 68 Respirations: 18 Pulse Ox (%): 97 - Physical Exam General: Cooperative, Mild distress HEENT: Atraumatic, Normocephalic, EOMI Neck: Supple Respiratory: Clear to auscultation bilaterally, Normal air movement Cardiovascular: No edema, Normal pulses, Regular rate/rhythm, Normal S1 S2 Gastrointestinal: Soft and benign, Non-distended, Tenderness Musculoskeletal: No clubbing, No swelling, No contractures, No erythema, No tenderness, No warmth Integumentary: No rashes, No breakdown, No significant lesion, No tenderness/swelling, No erythema, No warmth, No cyanosis Neurological: Normal speech, Sensation intact, Normal affect Assessment & Plan - Problems (Diagnosis) (1) Colonic diverticular abscess Current Visit: Yes Status: Acute (2) Type 2 diabetes mellitus Current Visit: Yes Status: Acute (3) Hypertension Current Visit: Yes Status: Acute (4) Hyperlipidemia Current Visit: Yes Status: Acute Physician Review Additional Text: Assessment Patient is a 59 year old female currently admitted with acute on chronic diverticulitis with abscess. She has been introduced to diet for the past 24 hours. Tolerating diet but this morning she is concerned about the frequency of her BM. She is still complaining of gas pain. Diverticular abscess Hyperlipidemia Hypertension Type 2 diabetes mellitus Plan Will try GI cocktail (simethicone, viscous lidocaine and simethicone) Continue colace and senna Day 6 of levofloxacin, flagyl and IVF Continue diet as tolerated, now tolerating eggs and fruits ID recommends 2 weeks of antibiotics Optimize multi-modal pain regimen Continue antiemetics Optimize BP control by adding norvascl. PRN labetalol also on board Continue TABBY-i and bystolic (patient states she's been dx with adrenal hyperstimulation; CT A/P with normal adrenal glands)
[2020-05-13] MEDS ORDERED: LIDOCAINE VISCOUS 2% SOLN 15 ML UDC PO PRN ×2 (11:00→12:00)
[2020-05-13] MEDS ORDERED: BENADRYL PO PRN (11:00)
[2020-05-13] MEDS ORDERED: MAGNES/ALUMIN/SIMET 30ML UCUP PO PRN (11:00)
[2020-05-13] MEDS ORDERED: GI COCKTAIL PO PRN (11:07)
[2020-05-13] MEDS ORDERED: DIPHENHYDRAMINE 12.5MG/5ML LIQ PO PRN ×2 (11:42→12:00)
[2020-05-13] MEDS: MAGNES/ALUMIN/SIMET 30ML UCUP PO PRN ×2 (12:31→18:28)
--- NOTE | 2020-05-13 18:15 | PN ---
Date of Progress Note: 05/13/2020 Diagnosis: Diverticulitis with intraabdominal abscess. Subjective: Patient is improving, still have some difficult time tolerating diet. She goes back to liquid again due to abdominal pain and then she gets better. She has no fever at this moment. No sh ortness of breath. No chest pain. Review of Systems: Ten points otherwise unremarkable. Objective: General: Patient is awake, alert, no distress. Abdomen: Soft and depressible. Mild left lower quadrant tenderness. Extremities: Good capillary refill. Plan: Patient has intraabdominal abscess not here just for the diverticulitis and for ondina t reason, we have given IV antibiotics, going to complete the 7 days of antibiotics this Friday, that will be followed by a repeat CT scan and then after that, we will check with Infectious Disease if s he needs more IV antibiotics or she can be transitioned to p.o. antibiotics. With the condition that if she improves during this condition, she might need elective surgery. We encouraged ambulation an d we will once again discuss with her the importance of diet. REUBEN/BLUE Voice ID: [id number] Report ID: [id number]
[2020-05-13] MEDS ORDERED: MAGNES/ALUMIN/SIMET 30ML UCUP ONE (18:35)
[2020-05-13] MEDS: Levofloxacin 750mg IV 750 MG/150 ML BAG IV SCH (21:12)
[2020-05-14] MEDS: METRONIDAZOLE 500mg IVPB 500 MG/100 ML BAG IV SCH ×3 (00:08→17:07)
[2020-05-14] MEDS: HYDROMORPHONE HCL 1 MG/ML INJ IV PRN ×2 (00:15→10:42)
[2020-05-14] MEDS: TRAMADOL HCL 50 MG TAB PO SCH ×4 (02:11→21:49)
[2020-05-14] MEDS: Ringers Lactate 1,000 ML IV SCH ×3 (04:26→12:39)
[2020-05-14] MEDS: lisinopriL 20 MG TAB PO SCH (08:42)
[2020-05-14] MEDS: DOCUSATE NA 100 MG CAP PO SCH ×2 (08:42→21:50)
[2020-05-14] MEDS: NEBIVOLOL HCL 5 MG TAB PO SCH (08:43)
--- NOTE | 2020-05-14 13:21 | P.PN ---
Subjective Date of Service: 05/14/20 Chief Complaint: Abdomen Subjective: No new changes (- still lower abdominal cramps) Physical Examination - Vital Signs Temperature: 97.1 F Blood Pressure: 164/74 Pulse: 59 Respirations: 14 Pulse Ox (%): 97 - Physical Exam General: Alert, In no apparent distress, Oriented x3 HEENT: Atraumatic, Normocephalic, PERRLA Neck: Supple, 2+ carotid pulse no bruit, JVD not distended Respiratory: Clear to auscultation bilaterally, Normal air movement Cardiovascular: Normal pulses, Regular rate/rhythm, Normal S1 S2 Gastrointestinal: Normal bowel sounds, Soft and benign, Non-distended, Tenderness (LLQ) Integumentary: No rashes, No breakdown Assessment And Plan - Current Problems (Diagnosis) (1) Colonic diverticular abscess Current Visit: Yes Status: Acute (2) Hyperlipidemia Current Visit: Yes Status: Acute (3) Hypertension Current Visit: Yes Status: Acute (4) Type 2 diabetes mellitus Current Visit: Yes Status: Acute Physician Review: Patient Assessed, Agree with Above Assessment and Plan Physician Review Additional Text: Assessment Diverticular abscess Hyperlipidemia Hypertension Type 2 diabetes mellitus Plan - continue IV abx - follow surgery plan for repeat CT in am - may need switch to po abx after CT if improving -as per surgery plans -on # 7 of levofloxacin, flagyl and IVF Continue diet as tolerated -ID recommends 2 weeks of antibiotics - still uncontrolled BP , will add Norvasc.c/w lisinopril and Bystolic
[2020-05-14] MEDS: AMLODIPINE 10 MG TAB PO SCH (14:24)
[2020-05-14] MEDS: ONDANSETRON 4 MG/2 ML VIAL IV PRN ×2 (17:07→23:00)
--- NOTE | 2020-05-14 21:01 | PN ---
Diagnosis: Acute diverticulitis with intraabdominal abscess. Subjective: Patient is doing better. No fever. Still not able to tolerate full diet yet. No short ness of breath. No chest pain. Review of Systems: 10 points otherwise unremarkable review of system. Objective: Chest: Clear. Abdomen: Soft and depressible. Mild generalized tenderness of the lower abdomen. Extremities: Good capillary refill. Plan: We are going to obtain CT scan of the abdomen and pelvis to see the progress and to see and denton ke sure that abscess is not expanding. REUBEN/BLUE Voice ID: [id number] Report ID: [id number]
[2020-05-14] MEDS: Levofloxacin 750mg IV 750 MG/150 ML BAG IV SCH (21:49)
[2020-05-14] MEDS: SIMETHICONE 80 MG TAB PO PRN (21:50)
[2020-05-14] MEDS ORDERED: Levofloxacin 750mg IV 750 MG/150 ML BAG IV ONE (21:55)
[2020-05-14 23:29] VITALS: O2SAT 97
[2020-05-15] MEDS: Ringers Lactate 1,000 ML IV SCH ×3 (00:48→12:19)
[2020-05-15] MEDS: TRAMADOL HCL 50 MG TAB PO SCH ×3 (03:00→14:15)
[2020-05-15] MEDS: ACETAMINOPHEN 500 MG TAB PO PRN ×2 (03:25→10:51)
[2020-05-15] MEDS: SIMETHICONE 80 MG TAB PO PRN ×2 (03:25→09:26)
[2020-05-15 05:03] LABS: Absolute Lymphocytes (CBC) 1.6 K/uL (0.7-4.9); Basophils % 0.7 % (0-1.3); Hematocrit 34.5 % (36.0-45.0); Lymphocytes % 21.3 % (15.3-44.8); MPV 9.2 fL (7.6-11.3)
--- NOTE | 2020-05-15 08:37 | P.PN ---
Date of Service: 05/15/20 Subjective: The patient is a 59-year-old female who presented to the ER with complaints of worsening left lower quadrant pain. Patient was seen by her PCP for abdominal pain and was prescribed antibiotics the, unsure of which antibiotic it was but she completed 10 days. Patient reports pain improved while on antibiotics but came back soon after she finished. Patient found to have leukocytosis, diverticulitis and diverticular abscess which have been consulted for. Patient examined at bedside. Still with LLQ pain. Patient had some nausea yesterday. Patient is having bowel movements. Patient to have repeat CT scan of Abd today. Objective: Temp Pulse Resp BP Pulse Ox 97.9 F 69 16 133/73 98 05/15/20 04:00 05/15/20 04:00 05/15/20 04:00 05/15/20 04:00 05/15/20 04:00 Labs: No new labs Available Abd/Pelvis CT 05/08: EXAM DESCRIPTION: CTAbdomen Pelvis W Contrast - 05/08/2020 3:53 pm CLINICAL HISTORY: Abdominal pain. left lower abdomen pain COMPARISON: No comparisons TECHNIQUE: Biphasic CT imaging of the abdomen and pelvis was performed with 100 ml non-ionic IV contrast. All CT scans are performed using dose optimization technique as appropriate and may include automated exposure control or mA/KV adjustment according to patient size. FINDINGS: The lung bases are clear. The liver, spleen, pancreas, adrenal glands and kidneys are within normal limits. No bowel obstruction, free air, free fluid or abscess. The appendix is not identified as a discrete structure, however, no secondary findings of appendicitis are identified. There is inflammatory changes involving the sigmoid colon in the left lower quadrant which are moderately severe likely representing acute diverticulitis. A small peridiverticular abscess is seen adjacent to this region measuring 2 cm in abutting the uterus. This abscess would not be drainable by percutaneous technique. No evidence of significant lymphadenopathy. No suspicious bony findings. IMPRESSION: Moderate acute sigmoid diverticulitis pattern is seen with small 2 cm peridiverticular abscess noted deep to the colon and abutting the left aspect of the uterus. Abd xray 05/10: CLINICAL HISTORY: diverticulitis Pain COMPARISON: Abdomen Pelvis W Contrast dated 05/08/2020 FINDINGS: The bowel gas pattern is non-obstructive. No evidence of free air or pneumatosis. No suspicious calcifications. No significant bony findings. IMPRESSION: Negative examination. ROS: General: Awake, alert CV: S1, S2 RESP: Good breath sounds, room air ABD: Tenderness to left lower quadrant, bowel sounds present Extremities: no edema Assessment and plan: Diverticulitis Leukocytosis resolved, Afebrile Diabetes mellitus, monitor glycemic control Currently on Levaquin day 8 and Flagyl day 8, recommend to continue for total of two weeks Can change to PO upon discharge Will continue to monitor Patient discussed with Dr. Valdes
[2020-05-15] MEDS ORDERED: Levofloxacin 750mg IV 750 MG/150 ML BAG IV SCH ×2 (09:00→21:00)
[2020-05-15] MEDS ORDERED: METRONIDAZOLE 500mg IVPB 500 MG/100 ML BAG IV SCH (09:00)
[2020-05-15] MEDS: NEBIVOLOL HCL 5 MG TAB PO SCH (09:22)
[2020-05-15] MEDS: AMLODIPINE 10 MG TAB PO SCH (09:25)
[2020-05-15] MEDS: DOCUSATE NA 100 MG CAP PO SCH (09:25)
[2020-05-15] MEDS: lisinopriL 20 MG TAB PO SCH (09:26)
--- NOTE | 2020-05-15 09:55 | RAD REPORT ---
EXAM DESCRIPTION: CT - Chest Abdomen Pelvis W Cont - 05/15/2020 9:16 am CLINICAL HISTORY: Chest and abdomen pain. intrabdominal abscess COMPARISON: Abdomen Pelvis W Contrast dated 05/08/2020 TECHNIQUE: Approximately 100 mL nonionic IV contrast was administered to the patient. All CT scans are performed using dose optimization technique as appropriate and may include automated exposure control or mA/KV adjustment according to patient size. FINDINGS: The lungs are clear.No pleural or pericardial effusion.No intrathoracic adenopathy. Mild diffuse fatty liver. The spleen, pancreas, adrenal glands and kidneys are within normal limits. Thickening of the sigmoid colon is again noted with mild surrounding inflammation. This appears mildl y improved since prior study. There is a 3.1 x 2.3 cm peridiverticular abscess seen in the left adnex a abutting the uterus in the pelvis. Normal appendix. Mildly prominent retroperitoneal lymph nodes a re seen. No worrisome osseous finding. IMPRESSION: Mild improvement in the acute left lower quadrant sigmoid diverticulitis since prior holly dy.3.1 x 2.3 cm peridiverticular abscess is seen in the left adnexa abutting the uterus. This abscess would not be amenable to image guided percutaneous drainage.
[2020-05-15] MEDS ORDERED: ACETAMINOPHEN 500 MG TAB PO ONE (11:50)
--- NOTE | 2020-05-15 12:45 | P.DS ---
Admission Date: 05/08/20 Discharge Date: 05/15/20 Reason for Admission: Diverticular abscess Consultations: Infectious disease: Dr. Valdes General surgery: Dr. Landeros Procedures: CT Abd/Pelvis 05/08 EXAM DESCRIPTION: CTAbdomen Pelvis W Contrast - 05/08/2020 3:53 pm CLINICAL HISTORY: Abdominal pain. left lower abdomen pain COMPARISON: No comparisons TECHNIQUE: Biphasic CT imaging of the abdomen and pelvis was performed with 100 ml non-ionic IV contrast. All CT scans are performed using dose optimization technique as appropriate and may include automated exposure control or mA/KV adjustment according to patient size. FINDINGS: The lung bases are clear. The liver, spleen, pancreas, adrenal glands and kidneys are within normal limits. No bowel obstruction, free air, free fluid or abscess. The appendix is not identified as a discrete structure, however, no secondary findings of appendicitis are identified. There is inflammatory changes involving the sigmoid colon in the left lower quadrant which are moderately severe likely r epresenting acute diverticulitis. A small peridiverticular abscess is seen adjacent to this region measuring 2 cm in abutting the uterus. This abscess would not be drainable by percutaneous technique. No evidence of significant lymphadenopathy. No suspicious bony findings. MPRESSION: Moderate acute sigmoid diverticulitis pattern is seen with small 2 cm peridiverticular abscess noted deep to the colon and abutting the left aspect of the uterus. Abd Xray EXAM DESCRIPTION: RAD - Abdomen W Erect - 05/10/2020 9:40 am CLINICAL HISTORY: diverticulitis Pain COMPARISON: Abdomen Pelvis W Contrast dated 05/08/2020 FINDINGS: The bowel gas pattern is non-obstructive. No evidence of free air or pneumatosis. No suspicious calcifications. No significant bony findings. IMPRESSION: Negative examination. CT abd/pelvis 05/15 EXAM DESCRIPTION: CT - Chest Abdomen Pelvis W Cont - 05/15/2020 9:16 am CLINICAL HISTORY: Chest and abdomen pain. intrabdominal abscess COMPARISON: Abdomen Pelvis W Contrast dated 05/08/2020 TECHNIQUE: Approximately 100 mL nonionic IV contrast was administered to the patient. All CT scans are performed using dose optimization technique as appropriate and may include automated exposure control or mA/KV adjustment according to patient size. FINDINGS: The lungs are clear.No pleural or pericardial effusion.No intrathoracic adenopathy. Mild diffuse fatty liver. The spleen, pancreas, adrenal glands and kidneys are within normal limits. Thickening of the sigmoid colon is again noted with mild surrounding inflammation. This appears mildly improved since prior study. There is a 3.1 x 2.3 cm peridiverticular abscess seen in the left adnexa abutting the uterus in the pelvis. Normal appendix. Mildly prominent retroperitoneal lymph nodes are seen. No worrisome osseous finding. IMPRESSION: Mild improvement in the acute left lower quadrant sigmoid diverticulitis since prior study.3.1 x 2.3 cm peridiverticular abscess is seen in the left adnexa abutting the uterus. This abscess would not be amenable to image guided percutaneous drainage. Dictated By: Konrad Mckeon MD 05/15/20 0955 Signed By: Konrad Mckeon MD 05/15/20 0955 Brief History of Present Illness: Patient is a 59-year-old female with a past medical history of obesity, hypertension, [id number] diabetes mellitus, and diverticulitis. She present to the ER complaining of acutely worsening left lower quadrant abdominal pain for the past 2 weeks. Patient was seen by her PCP for this issue and was prescribed antibiotics. She suspects it is Keflex. She endorses improvement for the next 10 days before relapsing again. She called her PCP who was willing to prescribe another antibiotics but patient could not stay home. Therefore she presented the ER. Patient was then admitted for further evaluation and management. Hospital Course: 59-year-old female patient with history of hypertension, diabetes mellitus type 2 presents to the emergency department with a history of left lower quadrant abdominal pain. Patient had previously completed a course of oral antibiotics but she was unsure of which antibiotic she took. Patient reports that she had a telemedicine visit with her primary care doctor and he is willing to prescribe her another course of oral antibiotics but the pain is too great so she presented to the emergency department. During her evaluation in the emergency department patient was found to have a shantel-diverticular abscess that is approximately 2 cm. Patient was admitted for further evaluation and management this condition. Radiology reported that this abscess was not amenable to percutaneous drainage. General Surgery and Infectious Disease were both consulted on this case. Patient did well with conservative management with IV antibiotics, fluids, pain medication during her hospitalization. At this time. Patient is doing much better, pain has improved greatly. General surgery is comfortable with patient being discharged on continued at antibiotic therapy. Infectious Disease recommends patient received an additional 1 week of oral antibiotics with Levaquin 750 mg p.o. once daily and Flagyl 500 mg t.i.d.. Patient is also to follow up with gastroenterology in the next 1-2 weeks. General surgery discussed with patient that she is to have a portion of her bowel removed in approximately 1 month once the infection has resolved. Patient will also require colonoscopy after this hospitalization. Patient be given strict return precautions. If she develops any fever, increasing pain, nausea, vomiting, blood in the stool. Patient also with history of diabetes mellitus type 2. This is remained stable. Patient will continue with metformin 500 mg once daily upon discharge. Further management this condition can be completed by her primary care doctor. Patient with history of hypertension. Patient can continue with lisinopril 40 mg p.o. once daily and Bystolic 5 mg p.o. once daily. Patient blood pressure has remained stable during this visit. This condition can be further managed by her primary care doctor. <Genaro Alejandro - Last Filed: 05/15/20 12:51> Admission Date: 05/08/20 Discharge Date: 05/15/20 Hospital Course: Patient seen and examined. Case discussed at length with nurse practitioner. Case also discuss with surgery and infectious disease. Patient will be discharged home with oral antibiotic therapy-Levaquin and Flagyl for 1 more week. Patient will need close follow up with GI for colonoscopy in the near future to further evaluate. Recommend follow up with General surgery. Continue home medication. <Dann Jhaveri - Last Filed: 05/15/20 18:16> Disposition: ROUTINE DISCHARGE Discharge Condition: GOOD Vital Signs/Physical Exam: Temp Pulse Resp BP Pulse Ox 97.2 F 76 18 174/81 H 97 05/15/20 08:00 05/15/20 08:00 05/15/20 08:00 05/15/20 08:00 05/15/20 08:00 General: Alert, In no apparent distress, Oriented x3 HEENT: Atraumatic, Normocephalic Neck: Supple Respiratory: Clear to auscultation bilaterally, Normal air movement Cardiovascular: No edema, Normal pulses Capillary refill: <2 Seconds Gastrointestinal: Normal bowel sounds, Tenderness (Mild tenderness left lower quadrant , the abdomen is soft) Musculoskeletal: No contractures, No erythema, No tenderness, No warmth Integumentary: No significant lesion, No tenderness/swelling Neurological: Normal gait, Normal speech, Normal tone Laboratory Data at Discharge: WBC 7.5 K/uL (4.3-10.9) 05/15/20 03:44 Hgb 11.7 g/dL (12.0-15.0) L 05/15/20 03:44 Hct 34.5 % (36.0-45.0) L 05/15/20 03:44 Plt Count 272 K/uL (152-406) 05/15/20 03:44 Sodium 140 mmol/L (136-145) 05/13/20 08:36 Potassium 3.6 mmol/L (3.5-5.1) 05/13/20 08:36 BUN 8 mg/dL (7-18) 05/13/20 08:36 Creatinine 0.47 mg/dL (0.55-1.3) L 05/13/20 08:36 Glucose 126 mg/dL (74-106) H 05/13/20 08:36 Total Bilirubin 0.7 mg/dL (0.2-1.0) 05/08/20 14:41 AST 12 U/L (15-37) L 05/08/20 14:41 ALT 18 U/L (12-78) 05/08/20 14:41 Alkaline Phosphatase 59 U/L (45-117) 05/08/20 14:41 Lipase 146 U/L (73-393) 05/08/20 14:41 <Genaro Alejandro - Last Filed: 05/15/20 12:51> Vital Signs/Physical Exam: Temp Pulse Resp BP Pulse Ox 97.4 F 71 18 131/67 98 05/15/20 12:00 05/15/20 12:00 05/15/20 12:00 05/15/20 12:00 05/15/20 12:00 Laboratory Data at Discharge: WBC 7.5 K/uL (4.3-10.9) 05/15/20 03:44 Hgb 11.7 g/dL (12.0-15.0) L 05/15/20 03:44 Hct 34.5 % (36.0-45.0) L 05/15/20 03:44 Plt Count 272 K/uL (152-406) 05/15/20 03:44 Sodium 140 mmol/L (136-145) 05/13/20 08:36 Potassium 3.6 mmol/L (3.5-5.1) 05/13/20 08:36 BUN 8 mg/dL (7-18) 05/13/20 08:36 Creatinine 0.47 mg/dL (0.55-1.3) L 05/13/20 08:36 Glucose 126 mg/dL (74-106) H 05/13/20 08:36 Total Bilirubin 0.7 mg/dL (0.2-1.0) 05/08/20 14:41 AST 12 U/L (15-37) L 05/08/20 14:41 ALT 18 U/L (12-78) 05/08/20 14:41 Alkaline Phosphatase 59 U/L (45-117) 05/08/20 14:41 Lipase 146 U/L (73-393) 05/08/20 14:41 <Dann Jhaveri - Last Filed: 05/15/20 18:16> Patient Discharge Instructions: 1. Patient is to follow up with primary care doctor in 1-2 weeks to follow up this hospitalization. Patient will also need to follow up with general surgery and gastroenterology. 2. 59-year-old female patient with history of hypertension, diabetes mellitus type 2 presents to the emergency department with a history of left lower quadrant abdominal pain. Patient had previously completed a course of oral antibiotics but she was unsure of which antibiotic she took. Patient reports that she had a telemedicine visit with her primary care doctor and he is willing to prescribe her another course of oral antibiotics but the pain is too great so she presented to the emergency department. During her evaluation in the emergency department patient was found to have a shantel-diverticular abscess that is approximately 2 cm. Patient was admitted for further evaluation and management this condition. Radiology reported that this abscess was not amenable to percutaneous drainage. General Surgery and Infectious Disease were both consulted on this case. Patient did well with conservative management with IV antibiotics, fluids, pain medication during her hospitalization. At this time. Patient is doing much better, pain has improved greatly. General surgery is c omfortable with patient being discharged on continued at antibiotic therapy. Infectious Disease recommends patient received an additional 1 week of oral antibiotics with Levaquin 750 mg p.o. once daily and Flagyl 500 mg t.i.d.. Patient is also to follow up with gastroenterology in the next 1-2 weeks. General surgery discussed with patient that she is to have a portion of her bowel removed in approximately 1 month once the infection has resolved. Patient will also require colonoscopy after this hospitalization. Patient is to be given be given strict return precautions. If she develops any fever, increasing pain, nausea, vomiting, blood in the stool. Patient also with history of diabetes mellitus type 2. This is remained stable. Patient will continue with metformin 500 mg once daily upon discharge. Further management this condition can be completed by her primary care doctor. Patient with history of hypertension. Patient can continue with lisinopril 40 mg p.o. once daily and B ystolic 5 mg p.o. once daily. Patient blood pressure has remained stable during this visit. This condition can be further managed by her primary care doctor. Diet: GI/soft and advance as tolerated Activity: Ad brissa Time spent managing pt's care (in minutes): 55 <Genaro Alejandro - Last Filed: 05/15/20 12:51> <Dann Jhaveri - Last Filed: 05/15/20 18:16> Home Medications: Lisinopril [Zestril] 1 tab PO DAILY 05/08/20 Metformin HCl [Glucophage*] 1 tab PO DAILY 05/08/20 Nebivolol HCl [Bystolic*] 1 tab PO DAILY 05/08/20 levoFLOXacin [Levaquin*] 750 mg PO DAILY #7 tab 05/15/20 metroNIDAZOLE [Flagyl] 500 mg PO Q8H 7 Days #21 tablet 05/15/20 New Medications: metroNIDAZOLE [Flagyl] 500 mg PO Q8H 7 Days #21 tablet levoFLOXacin [Levaquin*] 750 mg PO DAILY #7 tab Followup: Bonnie Pa MD [OUTSIDE PHYSICIAN] - 1-2 Weeks (PCP- call to schedule an appointment ) Taj Landeros MD [ACTIVE - CAN ADMIT] - 1-2 Weeks (surgeon- call to schedule an appointment )
[2020-05-15 13:14] VITALS: BP 131/67; TEMP 97.4
== END 2020-05-15 15:41 | disposition home or self-care (01) | DRG 392 ==
LOC: ER 14:08 → ERHOLD 17:58 → 2ND 19:35
PROVIDERS: ADMIT Internal Medicine; ATTEND Family Medicine
DX: K57.20 Diverticulitis of large intestine with perforation and abscess without bleeding (principal); I10 Essential (primary) hypertension; E11.9 Type 2 diabetes mellitus without complications; E78.5 Hyperlipidemia, unspecified; Z11.59 Encounter for screening for other viral diseases; Z88.5 Allergy status to narcotic agent; Z79.899 Other long term (current) drug therapy; Z79.84 Long term (current) use of oral hypoglycemic drugs
CPT/HCPCS: 36415; 71260; 74019; 74177; 80048; 80076; 81003; 81015; 82947; 83605; 83690; 85025; 96361; 96365; 96375; 99285; J1170; J2405; J2543; J7030; J7120; Q0163; Q9967; U0002